=== PATIENT | female | born 1995 | race Caucasian/White ===

== ENCOUNTER 2018-07-07 17:47 | Emergency (ER) | payer BC ==
[2018-07-07] MEDS ORDERED: METOCLOPRAMIDE 10 MG/2 ML VIAL IVP ONE (18:11)
[2018-07-07] MEDS ORDERED: NS 1,000 ML IV ONE (18:11)
--- NOTE | 2018-07-07 18:25 | EDPHY ---
H & P Stated Complaint: Tues. Migraine,Wed dizziness intermittent since,nausea and unsteady Time Seen by Provider: 07/07/18 18:00 HPI/ROS: This patient complains of a headache and vertiginous symptoms. Her mother brought her in by private vehicle for evaluation. She describes a headache that started 2 days prior to arrival gradual in onset bifrontal in throbbing in nature 6/10 intensity. She has associated nausea. She reports associated photophobia in addition and explains that she tends to get similar headaches about every 2 months that she calls migraines that has not been formally diagnosed with migraines. Usually her headaches improved with Tylenol that she has not taken Tylenol today for fear of potential vomiting with oral ingestion because of her nausea. She describes onset yesterday morning of vertigo when she arose from her bed with a room spinning sensation. Since then she has had ongoing episodes of vertigo when she moves her head or changes body position. Today she remainder bed most of the day due to this vertiginous symptoms. She had mild right ear pain associated with this yesterday but that has since resolved. She has no other associated symptoms and describes no other exacerbating factors. ROS: Constitutional: No fevers or other complaints new line neuro: Blurred vision when she has the midst of a dizzy episode but not at baseline. No other visual changes. No focal numbness tingling weakness or confusion. HEENT: No recent URI symptoms. No head injuries. Pulmonary: No shortness of breath or cough Cardiovascular: No heart palpitations lightheadedness or chest pain GI: Positive nausea but no vomiting. No abdominal pain. : No dysuria or other symptoms. Last menstrual period was 3 weeks ago normal timing for her Integumentary: No skin rash diaphoresis or other complaints. 10 point review of symptoms is performed and otherwise negative with exception of pertinent positives and negatives listed in HPI and ROS Source: Patient Exam Limitations: No limitations - Personal History LMP (Females 10-55): 8-14 Days Ago Current Tetanus Diphtheria and Acellular Pertussis (TDAP): Yes Tetanus Vaccine Date: 1999 - Medical/Surgical History Hx Asthma: Yes Hx Chronic Respiratory Disease: No Hx Diabetes: No Hx Cardiac Disease: No Hx Renal Disease: No Hx Cirrhosis: No Hx Alcoholism: No Hx HIV/AIDS: No Hx Splenectomy or Spleen Trauma: No Other PMH: Med hx-asthma. 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 HEENT: Is no external evidence of trauma on exam. Eyes: Pupils are equal and reactive to light. Extraocular motions are intact. Optic fundi: Clear with no papilledema or hemorrhage. Nose atraumatic. Ears: Clear bilaterally with no hemotympanum. Oropharynx: No dental trauma or malocclusion. No intraoral lacerations. Eyes: Pupils are equal and reactive to light. Extraocular motions are intact. Optic fundi: Clear with no papilledema or hemorrhage. Lungs: Clear to auscultation bilaterally Neck: Supple no meningismus. Cardiac: Regular rate and rhythm no murmur gallop or rub. Abdomen: Soft nontender no organomegaly Neuro: GCS of 15. Cranial nerves II through XII intact. Cerebellar exam is normal as judged by symmetric rapid hand movements bilaterally. No pronator drift. No sensory or motor deficits are appreciated. Dunlevy-Hallpike test: Positive for lateral nystagmus on the left Initial differential diagnosis: Migraine, tension headache, [employer] lesion, intracranial bleed benign positional vertigo, other peripheral vertigo, doubt central vertigo based on exam Constitutional: Initial Vital Signs Temperature (C) 37.0 C 07/07/18 17:52 Heart Rate 74 07/07/18 17:52 Respiratory Rate 16 07/07/18 17:52 Blood Pressure 131/69 H 07/07/18 17:52 O2 Sat (%) 96 07/07/18 17:52 O2 Delivery Mode Room Air Allergies/Adverse Reactions: ibuprofen Allergy (Verified 07/07/18 17:51) Home Medications: Medication Instructions Recorded Albuterol Hfa Anes Only 07/07/18 Meclizine HCl [Meclizine HCl 25 mg 25 mg PO TID PRN #20 tab 07/07/18 (RX,OTC)] Ondansetron Odt [Zofran Odt] 4 - 8 mg PO Q4PRN PRN #4 tab 07/07/18 SUMAtriptan [Imitrex 50 MG (RX)] 50 - 100 mg PO Q2H PRN #6 tab 07/07/18 Medical Decision Making Procedures: "BBQ maneuver"performed on patient for left horizontal canal vestibular involvement in benign positional vertigo with some improvement thereafter. ED Course/Re-evaluation: IV Reglan and an Benadryl, oral Tylenol with relief of headache. Nausea resolved Meclizine with mild improvement in vertigo. Ryland Hallpike test positive for lateral nystagmus to the left. This is consistent with involvement of left horizontal vestibular canal. Discussion: Patient presents with a migrainous type headache resolved with treatment here. Her vertigo is consistent with benign positional vertigo specifically horizontal canal on the left. She improved with treatment. She will follow up with ENT for any ongoing symptoms with plan to 10 per her symptoms with Zofran and meclizine in the meantime. I also prescribed Imitrex for migraines. She also follow up with Neurology regarding her migraines if she has any significant recurrence. She understands need to return emergency department should she have any worsening of her symptoms despite treatment plan. No evidence clinically of central vertigo or other red flag findings. - Data Points Medications Given: Discontinued Medications Acetaminophen (Tylenol) 1,000 mg PO EDNOW ONE Stop: 07/07/18 18:45 Last Admin: 07/07/18 18:51 Dose: 1,000 mg Diphenhydramine HCl (Benadryl Injection) 25 mg IVP EDNOW ONE Stop: 07/07/18 18:12 Last Admin: 07/07/18 18:22 Dose: 25 mg Sodium Chloride (Ns) 1,000 mls @ 0 mls/hr IV ONCE ONE; Wide Open PRN Reason: Protocol Stop: 07/07/18 18:12 Last Admin: 07/07/18 18:21 Dose: 1,000 mls Meclizine HCl (Meclizine Hcl) 25 mg PO EDNOW ONE Stop: 07/07/18 18:57 Last Admin: 07/07/18 18:58 Dose: 25 mg Metoclopramide HCl (Reglan Injection) 10 mg IVP EDNOW ONE Stop: 07/07/18 18:12 Last Admin: 07/07/18 18:25 Dose: 10 mg Departure - Departure Disposition: Home, Routine, Self-Care Clinical Impression: Benign positional vertigo Qualifiers: Laterality: left Qualified Code(s): H81.12 - Benign paroxysmal vertigo, left ear Migraine Qualifiers: Migraine type: without aura Status migrainosus presence: with status migrainosus Intractability: not intractable Qualified Code(s): G43.001 - Migraine without aura, not intractable, with status migrainosus Condition: Good Instructions: Migraine Headache (ED), Benign Paroxysmal Positional Vertigo (ED) Additional Instructions: Diagnosis: 1. Left-sided benign positional vertigo 2. Migraine Plan: Meclizine if needed for vertigo Zofran if needed for nausea Imitrex and Tylenol if needed for recurrent migraine You can look up the "BBQ maneuver" for Left horizontal canal benign positional vertigo on You tube and try this at home again if you still have vertigo. If her vertigo does not resolve over the next 1-3 days, call Dr. Perez-ENT specialist to arrange follow-up appointment Consider follow up with Neurology for migraines for further evaluation and treatment plan particularly if he have any increasing frequency or change in character of her headaches. Return emergency department for any significant worsening of her symptoms despite the treatment plan. Referrals: Cecilia Miramontes MD [Primary Care Provider] - As per Instructions Philippe Perez MD [Medical Doctor] - As per Instructions Jorge Philip DO [Medical Doctor] - As per Instructions Stand Alone Forms: Work Excuse Prescriptions: Meclizine HCl [Meclizine HCl 25 mg (RX,OTC)] 25 mg PO TID PRN #20 tab PRN Reason: vertigo Ondansetron Odt [Zofran Odt] 4 - 8 mg PO Q4PRN PRN #4 tab PRN Reason: Vomiting SUMAtriptan [Imitrex 50 MG (RX)] 50 - 100 mg PO Q2H PRN #6 tab PRN Reason: migraine
[2018-07-07] MEDS ORDERED: ACETAMINOPHEN 500 MG TAB PO ONE (18:44)
[2018-07-07] MEDS ORDERED: MECLIZINE HCL 25 MG TAB PO ONE (18:56)
[2018-07-07 20:07] VITALS: BP 112/73
== END 2018-07-07 20:05 | disposition home or self-care (01) ==
LOC: CED 17:47
DX: H81.22 Vestibular neuronitis, left ear (principal); G43.001 Migraine without aura, not intractable, with status migrainosus; E86.9 Volume depletion, unspecified
CPT/HCPCS: 96374; J1200; J2765